=== PATIENT | male | born 2000 | race Caucasian/White ===

== ENCOUNTER 2021-10-14 11:59 | Emergency (ER) | payer OTHER ==
[~2021-10-14] VITALS: Ht 182.9 cm; Wt 76.2 kg
[2021-10-14 12:07] VITALS: BP 132/96
--- NOTE | 2021-10-14 12:16 | NUR ---
X RAY AT BEDSIDE
--- NOTE | 2021-10-14 12:20 | NUR ---
BIBS C/O LEFT THUMB LACERATION WHILE CUTTING FOOD. NO S/S INFECTION NOTED. IN ROOM AIR AND DENIES SOB. RESPIRATION REGULAR AND UNLABORED. WILL CONTINUE TO MONITOR THE PATIENT.
[2021-10-14] MEDS ORDERED: TDAP [DIPH/PERTUSSIS/TET] 0.5 ML VIAL IM ONE (12:34)
[2021-10-14] MEDS: TDAP [DIPH/PERTUSSIS/TET] 0.5 ML VIAL IM ONE (12:35)
--- NOTE | 2021-10-14 13:24 | NUR ---
Patient discharged to home in stable condition. Written and verbal after care instructions given. Patient verbalizes understanding of instruction.
== END 2021-10-14 13:24 | disposition home or self-care (01) ==
LOC: ER 12:02
DX: S61.012A Laceration without foreign body of left thumb without damage to nail, initial encounter (principal); W45.8XXA Other foreign body or object entering through skin, initial encounter; Y93.G3 Activity, cooking and baking; Y92.89 Other specified places as the place of occurrence of the external cause; Y99.8 Other external cause status
CPT/HCPCS: 73140; 90471; 90715; 99283; A6403